=== PATIENT | male | born 1955 | race Caucasian/White ===

== ENCOUNTER 2018-03-19 10:14 | Emergency (ER) | payer MEDICARE ==
[2018-03-19 10:14] VITALS: BMI 29.5
[2018-03-19 10:22] VITALS: RESP 20
[2018-03-19 11:29] VITALS: BP 147/77; PULSE 97; TEMP 97.8; O2SAT 97
--- NOTE | 2018-03-19 12:45 | C.PDOC ---
History Of Present Illness 62 y/o male presents to the ER complaining of left shoulder pain which has been present for the past few days. Patient states that the pain has been slowly increasing in severity. Patient denies having trauma, numbness to left arm, CP, and SOB. Chief Complaint (Nursing): Upper Extremity Problem/Injury History Per: Patient History/Exam Limitations: no limitations Onset/Duration Of Symptoms: Days Current Symptoms Are (Timing): Still Present Severity: Moderate Past Medical History Reviewed: Historical Data, Nursing Documentation, Vital Signs Vital Signs: Last Vital Signs Temp 97.8 F 03/19/18 11:26 Pulse 97 H 03/19/18 11:26 Resp 20 03/19/18 11:26 BP 147/77 03/19/18 11:26 Pulse Ox 97 03/19/18 13:24 - Medical History PMH: Anxiety, Asthma, Cardia Arrhythmia, Depression, Diabetes, HTN, Hypercholesterolemia Denies: Chronic Kidney Disease Surgical History: CABG (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 Musculoskeletal: Positive for: Shoulder Pain (left shoulder pain) Neurological: Negative for: Numbness Physical Exam - Physical Exam Appears: Non-toxic, No Acute Distress Skin: Normal Color, Warm, Dry Head: Atraumatic, Normacephalic Eye(s): bilateral: Normal Inspection Nose: Normal Oral Mucosa: Moist Neck: Supple Chest: Symmetrical Cardiovascular: Rhythm Regular Respiratory: Normal Breath Sounds, No Rales, No Rhonchi, No Wheezing Extremity: Normal ROM, Tenderness (point tenderness to anterior aspect of left shoulder), No Swelling Neurological/Psych: Oriented x3, Normal Speech ED Course And Treatment ECG: Interpreted By Me, Viewed By Me ECG Rhythm: Sinus Rhythm Interpretation Of ECG: NSR with left axis deviation and 1st degree AV block Rate From EC O2 Sat by Pulse Oximetry: 97 (RA) Pulse Ox Interpretation: Normal - Other Rad X- Ray - Left Shoulder X-Ray: Viewed By Me, Read By Radiologist Interpretation: PROCEDURE: Radiographs of the Left Shoulder. HISTORY: Left shoulder pain. COMPARISON: No prior. FINDINGS: BONES: No acute displaced fracture nor dislocation. 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 Questionable minimal degenerative spur formation along the inferior glenoid rim. SOFT TISSUES: Normal. OTHER FINDINGS: None. IMPRESSION: No acute displaced fracture nor dislocation. 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 . Questionable minimal degenerative changes left glenohumeral joint Medical Decision Making Medical Decision Making: Plan: --X- Ray - Left Shoulder --EKG Updates: X- Ray- Left Shoulder is negative. Patient has been discharged with prescription for Motrin and instructed to follow up with PMD and orthopedist in 2-3 days. Disposition - Disposition Referrals: Sesar Fernandez MD [Staff Provider] - Paradise Lopez MD [Staff Provider] - Disposition: HOME/ ROUTINE Disposition Time: 11:00 Condition: GOOD Additional Instructions: BRY SUAZO, thank you for letting us take care of you today. Your provider was Loy Morris DO and you were treated for LT SHOULDER PAIN. The emergency medical care you received today was directed at your acute symptoms. If you were prescribed any medication, please fill it and take as directed. It may take several days for your symptoms to resolve. Return to the Emergency Department if your symptoms worsen, do not improve, or if you have any other problems. Please contact your doctor or call one of the physicians/clinics you have been referred to that are listed on the Patient Visit Information form that is included in your discharge packet. Bring any paperwork you were given at discharge with you along with any medications you are taking to your follow up visit. Our treatment cannot replace ongoing medical care by a primary care provider outside of the emergency department. Thank you for allowing the [facility] team to be part of your care today. Follow up with your primary care doctor and orthopedics in 2-3 days for re- evaluation. Prescriptions: Ibuprofen [Motrin] 600 mg PO Q6 PRN #20 tab PRN Reason: Pain, Moderate (4-7) Instructions: Shoulder Pain (DC) Forms: [employer] (Indian) - Clinical Impression Clinical Impression: Shoulder strain - Scribe Statement The provider has reviewed the documentation as recorded by the [place] Justin Agosto Provider Attestation: All medical record entries made by the Scribe were at my direction and personally dictated by me. I have reviewed the chart and agree that the record accurately reflects my personal performance of the history, physical exam, medical decision making, and the department course for this patient. I have also personally directed, reviewed, and agree with the discharge instructions and disposition.
--- NOTE | 2018-03-19 13:04 | RAD ---
PROCEDURE: Radiographs of the Left Shoulder HISTORY: Left shoulder pain COMPARISON: No prior. 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 Questionable minimal degenerative spur formation along the inferior glenoid rim SOFT TISSUES: Normal. OTHER FINDINGS: None. IMPRESSION: No acute displaced fracture nor dislocation. 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 . Questionable minimal degenerative changes left glenohumeral joint
--- NOTE | 2018-03-20 22:53 | CARD ---
APPROVED REPORT EKG Measurement Heart [id number] <Conclusion> Sinus rhythm with 1st degree AV block Left axis deviation Nonspecific intraventricular block Possible Anterolateral infarct, age undetermined Abnormal ECG
== END 2018-03-19 11:38 | disposition home or self-care (01) ==
LOC: C.ER 10:14
DX: S46.912A Strain of unspecified muscle, fascia and tendon at shoulder and upper arm level, left arm, initial encounter (principal); X58.XXXA Exposure to other specified factors, initial encounter; Y92.9 Unspecified place or not applicable; I10 Essential (primary) hypertension; F17.210 Nicotine dependence, cigarettes, uncomplicated